=== PATIENT | female | born 1955 | race Caucasian/White ===

== ENCOUNTER → 2023-07-05 | Outpatient (CLI) | payer MEDICARE, OTHER, SELFPAY ==
--- NOTE | 2023-07-05 14:15 | RAD_ITS ---
INDICATION: KIDNEY STONE COMPARISON: None. FINDINGS: Single frontal view of the abdomen. Nonobstructive bowel gas pattern. No obvious free air. No definite suspicious calcifications. No mass appreciated. RAD/Abdomen Single View IMPRESSION: Moderate amount of stool throughout the colon. Electronically Signed: Juan Tomlin MD at 17:35 EDT ,
== END | disposition home or self-care (01) ==
PROVIDERS: PCP Physician Assistant; Referring Provider Urology; Visit Provider Urology
DX: N20.0 Calculus of kidney (principal)
CPT/HCPCS: 74018